=== PATIENT | male | born 1975 | race Caucasian/White ===

== ENCOUNTER → 2019-04-30 | Outpatient (CLI) | payer SELFPAY | PROVIDERS: Family Provider Nurse Practitioner; Visit Provider Psychiatry & Neurology Psychiatry | DX: Z79.899 Other long term (current) drug therapy (principal) ==

== ENCOUNTER → 2019-05-28 09:45 | Outpatient (BNVA) | payer OTHER, SELFPAY | PROVIDERS: Family Provider Nurse Practitioner; PCP Nurse Practitioner; Visit Provider Psychiatry & Neurology Psychiatry | DX: Z79.899 Other long term (current) drug therapy (principal) | CPT/HCPCS: 85007; 85027 ==

== ENCOUNTER → 2019-06-04 09:26 | Outpatient (BNVA) | payer MEDICARE, MEDICAID, SELFPAY | PROVIDERS: Family Provider Nurse Practitioner; PCP Nurse Practitioner; Visit Provider Psychiatry & Neurology Psychiatry | DX: F25.0 Schizoaffective disorder, bipolar type (principal); F17.200 Nicotine dependence, unspecified, uncomplicated | CPT/HCPCS: 99213 ==

== ENCOUNTER → 2019-06-25 09:14 | Outpatient (BNVA) | payer MEDICARE, MEDICAID, SELFPAY | PROVIDERS: Family Provider Nurse Practitioner; PCP Nurse Practitioner; Visit Provider Psychiatry & Neurology Psychiatry | DX: F25.0 Schizoaffective disorder, bipolar type (principal) | CPT/HCPCS: 85007; 85027 ==

== ENCOUNTER → 2019-07-04 11:46 | Outpatient (BNVA) | payer MEDICARE, MEDICAID, SELFPAY | PROVIDERS: Family Provider Nurse Practitioner; PCP Nurse Practitioner; Visit Provider Family Medicine | DX: J44.9 Chronic obstructive pulmonary disease, unspecified (principal); I10 Essential (primary) hypertension; K21.9 Gastro-esophageal reflux disease without esophagitis; E78.2 Mixed hyperlipidemia | CPT/HCPCS: 80053; 80061 ==

== ENCOUNTER → 2019-08-20 07:49 | Outpatient (BNVA) | payer MEDICARE, MEDICAID, SELFPAY | PROVIDERS: Family Provider Nurse Practitioner; PCP Nurse Practitioner; Visit Provider Psychiatry & Neurology Psychiatry | DX: F25.0 Schizoaffective disorder, bipolar type (principal); F17.200 Nicotine dependence, unspecified, uncomplicated | CPT/HCPCS: 99213 ==

== ENCOUNTER → 2019-10-11 07:29 | Outpatient (BNVA) | payer MEDICARE, MEDICAID, SELFPAY | PROVIDERS: Family Provider Nurse Practitioner; PCP Nurse Practitioner; Visit Provider Psychiatry & Neurology Psychiatry | DX: F25.0 Schizoaffective disorder, bipolar type (principal); Z79.899 Other long term (current) drug therapy; F17.200 Nicotine dependence, unspecified, uncomplicated | CPT/HCPCS: 85007; 85027; 99215 ==

== ENCOUNTER → 2019-11-11 07:33 | Outpatient (BNVA) | payer MEDICARE, MEDICAID, SELFPAY | PROVIDERS: Family Provider Nurse Practitioner; PCP Nurse Practitioner; Visit Provider Psychiatry & Neurology Psychiatry | DX: F25.0 Schizoaffective disorder, bipolar type (principal); F17.200 Nicotine dependence, unspecified, uncomplicated; Z79.899 Other long term (current) drug therapy | CPT/HCPCS: 85007; 85027; 99213 ==

== ENCOUNTER → 2019-11-26 09:41 | Outpatient (BNVA) | payer MEDICARE, SELFPAY | PROVIDERS: Family Provider Nurse Practitioner; PCP Nurse Practitioner; Visit Provider Psychiatry & Neurology Psychiatry | DX: Z79.899 Other long term (current) drug therapy (principal); F25.0 Schizoaffective disorder, bipolar type | CPT/HCPCS: 80048; 80061; 80178; 83036; 84443; 85007; 85027 ==

== ENCOUNTER 2019-12-04 11:50 | Outpatient (CLI) | payer MEDICARE, MEDICAID, SELFPAY ==
[2019-11-27 10:56] VITALS: BP 116/81; BMI 26.7
[2019-12-04 14:29] LABS: Lithium 0.7 mmol/L (0.6-1.2)
== END 2019-12-04 11:51 | disposition home or self-care (01) ==
LOC: LAB 11:54
PROVIDERS: Visit Provider Psychiatry & Neurology Psychiatry
DX: Z79.899 Other long term (current) drug therapy (principal)
CPT/HCPCS: 80178

== ENCOUNTER → 2019-12-10 09:40 | Outpatient (BNVA) | payer MEDICARE, MEDICAID, SELFPAY ==
[2019-11-27 10:56] VITALS: BP 116/81; BMI 26.7
== END ==
PROVIDERS: Visit Provider Psychiatry & Neurology Psychiatry
DX: E87.1 Hypo-osmolality and hyponatremia (principal); Z79.899 Other long term (current) drug therapy
CPT/HCPCS: 85007; 85027

== ENCOUNTER → 2019-12-11 07:41 | Outpatient (BNVA) | payer MEDICARE, SELFPAY ==
[2019-11-27 10:56] VITALS: BP 116/81; BMI 26.7
== END ==
PROVIDERS: Visit Provider Psychiatry & Neurology Psychiatry
DX: E87.1 Hypo-osmolality and hyponatremia (principal); F17.200 Nicotine dependence, unspecified, uncomplicated; F25.0 Schizoaffective disorder, bipolar type
CPT/HCPCS: 80053; 99214

== ENCOUNTER → 2019-12-17 09:26 | Outpatient (BNVA) | payer MEDICARE, SELFPAY ==
[2019-11-27 10:56] VITALS: BP 116/81; BMI 26.7
== END ==
PROVIDERS: Visit Provider Psychiatry & Neurology Psychiatry
DX: E87.1 Hypo-osmolality and hyponatremia (principal)
CPT/HCPCS: 83935

== ENCOUNTER → 2019-12-24 09:35 | Outpatient (BNVA) | payer OTHER, MEDICAID, SELFPAY ==
[2019-11-27 10:56] VITALS: BP 116/81; BMI 26.7
== END ==
PROVIDERS: Visit Provider Psychiatry & Neurology Psychiatry
DX: E87.1 Hypo-osmolality and hyponatremia (principal)
CPT/HCPCS: 85007; 85027

== ENCOUNTER → 2019-12-31 09:46 | Outpatient (BNVA) | payer MEDICARE, MEDICAID, SELFPAY ==
[2019-11-27 10:56] VITALS: BP 116/81; BMI 26.7
== END ==
PROVIDERS: Visit Provider Psychiatry & Neurology Psychiatry
DX: F25.0 Schizoaffective disorder, bipolar type (principal); Z79.899 Other long term (current) drug therapy
CPT/HCPCS: 85007; 85027

== ENCOUNTER → 2020-01-14 09:08 | Outpatient (BNVA) | payer MEDICARE, MEDICAID, SELFPAY ==
[2019-11-27 10:56] VITALS: BP 116/81; BMI 26.7
== END ==
PROVIDERS: Visit Provider Psychiatry & Neurology Psychiatry
DX: E87.1 Hypo-osmolality and hyponatremia (principal); F25.0 Schizoaffective disorder, bipolar type; F17.200 Nicotine dependence, unspecified, uncomplicated; F17.210 Nicotine dependence, cigarettes, uncomplicated
CPT/HCPCS: 85007; 85027; 99213

== ENCOUNTER → 2020-01-28 09:20 | Outpatient (BNVA) | payer MEDICARE, MEDICAID, SELFPAY ==
[2019-11-27 10:56] VITALS: BP 116/81; BMI 26.7
== END ==
PROVIDERS: Visit Provider Psychiatry & Neurology Psychiatry
DX: F25.0 Schizoaffective disorder, bipolar type (principal); Z79.899 Other long term (current) drug therapy
CPT/HCPCS: 85007; 85027

== ENCOUNTER → 2020-02-11 09:13 | Outpatient (BNVA) | payer MEDICARE, MEDICAID, SELFPAY ==
[2019-11-27 10:56] VITALS: BP 116/81; BMI 26.7
== END ==
PROVIDERS: Visit Provider Psychiatry & Neurology Psychiatry
DX: F25.0 Schizoaffective disorder, bipolar type (principal); F17.200 Nicotine dependence, unspecified, uncomplicated; E87.1 Hypo-osmolality and hyponatremia
CPT/HCPCS: 99213

== ENCOUNTER → 2020-02-25 09:16 | Outpatient (BNVA) | payer MEDICARE, MEDICAID, SELFPAY ==
[2020-02-15 11:27] VITALS: BP 116/81; BMI 26.7
== END ==
PROVIDERS: Visit Provider Psychiatry & Neurology Psychiatry
DX: F25.0 Schizoaffective disorder, bipolar type (principal); Z79.899 Other long term (current) drug therapy
CPT/HCPCS: 85007; 85027

== ENCOUNTER → 2020-03-24 09:14 | Outpatient (BNVA) | payer MEDICARE, SELFPAY ==
[2020-02-15 11:27] VITALS: BP 116/81; BMI 26.7
== END ==
PROVIDERS: Visit Provider Psychiatry & Neurology Psychiatry
DX: F25.0 Schizoaffective disorder, bipolar type (principal); Z79.899 Other long term (current) drug therapy
CPT/HCPCS: 85007; 85027

== ENCOUNTER → 2020-04-14 09:16 | Outpatient (BNVA) | payer MEDICARE, MEDICAID, SELFPAY ==
[2020-02-15 11:27] VITALS: BP 116/81; BMI 26.7
== END ==
PROVIDERS: Visit Provider Psychiatry & Neurology Psychiatry
DX: F25.0 Schizoaffective disorder, bipolar type (principal); Z79.899 Other long term (current) drug therapy
CPT/HCPCS: 85007; 85027

== ENCOUNTER → 2020-04-21 09:06 | Outpatient (BNVA) | payer MEDICARE, MEDICAID, SELFPAY ==
[2020-02-15 11:27] VITALS: BP 116/81; BMI 26.7
== END ==
PROVIDERS: Visit Provider Psychiatry & Neurology Psychiatry
DX: F25.0 Schizoaffective disorder, bipolar type (principal); F17.200 Nicotine dependence, unspecified, uncomplicated; E87.1 Hypo-osmolality and hyponatremia; Z79.899 Other long term (current) drug therapy
CPT/HCPCS: 99214

== ENCOUNTER → 2020-05-12 08:21 | Outpatient (BNVA) | payer MEDICARE, MEDICAID, SELFPAY ==
[2020-02-15 11:27] VITALS: BP 116/81; BMI 26.7
== END ==
PROVIDERS: Visit Provider Psychiatry & Neurology Psychiatry
DX: Z79.899 Other long term (current) drug therapy (principal)
CPT/HCPCS: 85025

== ENCOUNTER → 2020-05-19 08:26 | Outpatient (BNVA) | payer MEDICARE, MEDICAID, SELFPAY ==
[2020-02-15 11:27] VITALS: BP 116/81; BMI 26.7
== END ==
PROVIDERS: Visit Provider Psychiatry & Neurology Psychiatry
DX: Z79.899 Other long term (current) drug therapy (principal)
CPT/HCPCS: 80048; 80178; 84443

== ENCOUNTER → 2020-06-25 12:39 | Outpatient (BNVA) | payer MEDICARE, MEDICAID, SELFPAY ==
[2020-02-15 11:27] VITALS: BP 116/81; BMI 26.7
== END ==
PROVIDERS: Visit Provider Psychiatry & Neurology Psychiatry
DX: F25.0 Schizoaffective disorder, bipolar type (principal); F17.200 Nicotine dependence, unspecified, uncomplicated
CPT/HCPCS: 99214

== ENCOUNTER → 2020-08-18 09:21 | Outpatient (BNVA) | payer MEDICARE, MEDICAID, SELFPAY ==
[2020-02-15 11:27] VITALS: BP 116/81; BMI 26.7
== END ==
PROVIDERS: Visit Provider Psychiatry & Neurology Psychiatry
DX: F25.0 Schizoaffective disorder, bipolar type (principal); Z79.899 Other long term (current) drug therapy; F17.200 Nicotine dependence, unspecified, uncomplicated
CPT/HCPCS: 85025; 99214

== ENCOUNTER → 2020-08-24 09:17 | Outpatient (BNVA) | payer MEDICARE, MEDICAID, SELFPAY ==
[2020-02-15 11:27] VITALS: BP 116/81; BMI 26.7
== END ==
PROVIDERS: Visit Provider Family Medicine
DX: E78.2 Mixed hyperlipidemia (principal); I10 Essential (primary) hypertension; E78.5 Hyperlipidemia, unspecified; J44.9 Chronic obstructive pulmonary disease, unspecified; Z87.19 Personal history of other diseases of the digestive system
CPT/HCPCS: 80053; 80061; 84443; 85025

== ENCOUNTER → 2020-10-20 09:14 | Outpatient (BNVA) | payer MEDICARE, MEDICAID, SELFPAY ==
[2020-02-15 11:27] VITALS: BP 116/81; BMI 26.7
== END ==
PROVIDERS: Visit Provider Psychiatry & Neurology Psychiatry
DX: F25.0 Schizoaffective disorder, bipolar type (principal); Z79.899 Other long term (current) drug therapy; F17.210 Nicotine dependence, cigarettes, uncomplicated; E87.1 Hypo-osmolality and hyponatremia
CPT/HCPCS: 99214; 80048; 85025

== ENCOUNTER → 2020-11-17 09:54 | Outpatient (BNVA) | payer OTHER, SELFPAY ==
[2020-02-15 11:27] VITALS: BP 116/81; BMI 26.7
== END ==
PROVIDERS: Visit Provider Psychiatry & Neurology Psychiatry
DX: F25.0 Schizoaffective disorder, bipolar type (principal); Z79.899 Other long term (current) drug therapy
CPT/HCPCS: 80061; 83036; 85007; 85027

== ENCOUNTER → 2020-12-17 09:20 | Outpatient (BNVA) | payer MEDICARE, MEDICAID, OTHER, SELFPAY ==
[2020-12-07 11:26] VITALS: BP 119/78; BMI 31.3
== END ==
PROVIDERS: Visit Provider Psychiatry & Neurology Psychiatry
DX: F25.0 Schizoaffective disorder, bipolar type (principal); Z79.899 Other long term (current) drug therapy
CPT/HCPCS: 80178; 84295; 85007; 85027

== ENCOUNTER → 2021-03-02 09:27 | Outpatient (BNVA) | payer MEDICARE, MEDICAID, SELFPAY ==
[2020-12-07 11:26] VITALS: BP 119/78; BMI 31.3
== END ==
PROVIDERS: Visit Provider Psychiatry & Neurology Psychiatry
DX: F25.0 Schizoaffective disorder, bipolar type (principal); F17.200 Nicotine dependence, unspecified, uncomplicated; Z79.899 Other long term (current) drug therapy
CPT/HCPCS: 85007; 85027; 99214

== ENCOUNTER → 2021-03-31 17:41 | Outpatient (BNVA) | payer MEDICAID, SELFPAY ==
[2020-12-07 11:26] VITALS: BP 119/78; BMI 31.3
== END ==
PROVIDERS: Visit Provider Nurse Practitioner Family
DX: E78.2 Mixed hyperlipidemia (principal); I10 Essential (primary) hypertension; R41.0 Disorientation, unspecified
CPT/HCPCS: 80053; 80061; 81000; 82306; 82607; 83735; 84443; 85025

== ENCOUNTER → 2021-04-20 08:36 | Outpatient (BNVA) | payer MEDICARE, MEDICAID, SELFPAY ==
[2020-12-07 11:26] VITALS: BP 119/78; BMI 31.3
== END ==
PROVIDERS: Visit Provider Nurse Practitioner Family
DX: E87.1 Hypo-osmolality and hyponatremia (principal)
CPT/HCPCS: 80048

== ENCOUNTER → 2021-05-04 09:27 | Outpatient (BNVA) | payer MEDICARE, MEDICAID, SELFPAY ==
[2020-12-07 11:26] VITALS: BP 119/78; BMI 31.3
== END ==
PROVIDERS: Visit Provider Psychiatry & Neurology Psychiatry
DX: F25.0 Schizoaffective disorder, bipolar type (principal); F17.200 Nicotine dependence, unspecified, uncomplicated
CPT/HCPCS: 99215

== ENCOUNTER → 2021-05-11 09:47 | Outpatient (BNVA) | payer MEDICARE, MEDICAID, SELFPAY ==
[2020-12-07 11:26] VITALS: BP 119/78; BMI 31.3
== END ==
PROVIDERS: Visit Provider Psychiatry & Neurology Psychiatry
DX: Z79.899 Other long term (current) drug therapy (principal)
CPT/HCPCS: 80178

== ENCOUNTER → 2021-05-13 08:45 | Outpatient (BNVA) | payer OTHER, SELFPAY ==
[2020-12-07 11:26] VITALS: BP 119/78; BMI 31.3
== END ==
PROVIDERS: Visit Provider Psychiatry & Neurology Psychiatry
DX: F25.0 Schizoaffective disorder, bipolar type (principal); Z79.899 Other long term (current) drug therapy
CPT/HCPCS: 80178; 85007; 85027

== ENCOUNTER → 2021-05-25 12:58 | Outpatient (BNVA) | payer OTHER, SELFPAY ==
[2020-12-07 11:26] VITALS: BP 119/78; BMI 31.3
== END ==
PROVIDERS: PCP Family Medicine; Visit Provider Psychiatry & Neurology Psychiatry
DX: Z79.899 Other long term (current) drug therapy (principal)
CPT/HCPCS: 80178

== ENCOUNTER → 2021-05-27 09:34 | Outpatient (BNVA) | payer MEDICARE, MEDICAID, SELFPAY ==
[2020-12-07 11:26] VITALS: BP 119/78; BMI 31.3
== END ==
PROVIDERS: PCP Family Medicine; Visit Provider Psychiatry & Neurology Psychiatry
DX: F25.0 Schizoaffective disorder, bipolar type (principal); E87.1 Hypo-osmolality and hyponatremia; F17.200 Nicotine dependence, unspecified, uncomplicated
CPT/HCPCS: 99214

== ENCOUNTER → 2021-06-29 09:30 | Outpatient (BNVA) | payer MEDICARE, MEDICAID, SELFPAY ==
[2020-12-07 11:26] VITALS: BP 119/78; BMI 31.3
== END ==
PROVIDERS: PCP Family Medicine; Visit Provider Psychiatry & Neurology Psychiatry
DX: F25.0 Schizoaffective disorder, bipolar type (principal); E87.1 Hypo-osmolality and hyponatremia; F17.200 Nicotine dependence, unspecified, uncomplicated; Z79.899 Other long term (current) drug therapy
CPT/HCPCS: 80048; 80178; 84443; 85007; 85027; 99214

== ENCOUNTER → 2021-07-22 09:53 | Outpatient (BNVA) | payer MEDICARE, MEDICAID, OTHER, SELFPAY ==
[2020-12-07 11:26] VITALS: BP 119/78; BMI 31.3
== END ==
PROVIDERS: PCP Family Medicine; Visit Provider Psychiatry & Neurology Psychiatry
DX: F25.0 Schizoaffective disorder, bipolar type (principal); Z79.899 Other long term (current) drug therapy
CPT/HCPCS: 80061; 80178

== ENCOUNTER → 2021-07-27 09:32 | Outpatient (BNVA) | payer MEDICARE, MEDICAID, SELFPAY ==
[2021-07-26 14:58] VITALS: BP 135/89; BMI 28.2
== END ==
PROVIDERS: PCP Family Medicine; Visit Provider Psychiatry & Neurology Psychiatry
DX: F25.0 Schizoaffective disorder, bipolar type (principal); F17.200 Nicotine dependence, unspecified, uncomplicated; Z79.899 Other long term (current) drug therapy
CPT/HCPCS: 85007; 85027; 99214

== ENCOUNTER → 2021-08-24 09:29 | Outpatient (BNVA) | payer MEDICARE, MEDICAID, SELFPAY ==
[2021-07-26 14:58] VITALS: BP 135/89; BMI 28.2
== END ==
PROVIDERS: PCP Family Medicine; Visit Provider Psychiatry & Neurology Psychiatry
DX: F25.0 Schizoaffective disorder, bipolar type (principal); F17.200 Nicotine dependence, unspecified, uncomplicated; Z79.899 Other long term (current) drug therapy; E87.1 Hypo-osmolality and hyponatremia
CPT/HCPCS: 85007; 85027; 99213

== ENCOUNTER → 2021-10-05 09:38 | Outpatient (BNVA) | payer MEDICARE, SELFPAY ==
[2021-10-04 08:06] VITALS: BP 135/89; BMI 28.2
== END ==
PROVIDERS: PCP Family Medicine; Visit Provider Psychiatry & Neurology Psychiatry
DX: F25.0 Schizoaffective disorder, bipolar type (principal); Z79.899 Other long term (current) drug therapy
CPT/HCPCS: 85007; 85027

== ENCOUNTER → 2021-10-26 09:36 | Outpatient (BNVA) | payer MEDICARE, SELFPAY ==
[2021-10-13 07:23] VITALS: BP 135/89; BMI 28.2
== END ==
PROVIDERS: PCP Family Medicine; Visit Provider Psychiatry & Neurology Psychiatry
DX: Z79.899 Other long term (current) drug therapy (principal)
CPT/HCPCS: 85025

== ENCOUNTER → 2021-10-28 10:12 | Outpatient (BNVA) | payer MEDICARE, MEDICAID, SELFPAY ==
[2021-10-13 07:23] VITALS: BP 135/89; BMI 28.2
== END ==
PROVIDERS: PCP Family Medicine; Visit Provider Psychiatry & Neurology Psychiatry
DX: Z72.89 Other problems related to lifestyle (principal); E87.1 Hypo-osmolality and hyponatremia; F17.200 Nicotine dependence, unspecified, uncomplicated; F25.0 Schizoaffective disorder, bipolar type; Z79.899 Other long term (current) drug therapy
CPT/HCPCS: 99213

== ENCOUNTER → 2021-12-23 10:39 | Outpatient (BNVA) | payer MEDICARE, MEDICAID, SELFPAY ==
[2021-11-05 16:28] VITALS: BP 135/89; BMI 28.2
== END ==
PROVIDERS: PCP Family Medicine; Visit Provider Psychiatry & Neurology Psychiatry
DX: Z79.899 Other long term (current) drug therapy (principal); E87.1 Hypo-osmolality and hyponatremia; F25.0 Schizoaffective disorder, bipolar type; F17.200 Nicotine dependence, unspecified, uncomplicated; Z72.89 Other problems related to lifestyle
CPT/HCPCS: 84295; 85007; 85027

== ENCOUNTER → 2022-02-17 10:19 | Outpatient (BNVA) | payer MEDICARE, MEDICAID, SELFPAY ==
[2022-02-07 12:23] VITALS: BP 135/89; BMI 28.2
== END ==
PROVIDERS: PCP Family Medicine; Visit Provider Psychiatry & Neurology Psychiatry
DX: Z79.899 Other long term (current) drug therapy (principal); E87.1 Hypo-osmolality and hyponatremia; F25.0 Schizoaffective disorder, bipolar type; F17.200 Nicotine dependence, unspecified, uncomplicated; Z72.89 Other problems related to lifestyle
CPT/HCPCS: 85007; 85027

== ENCOUNTER → 2022-04-05 10:27 | Outpatient (BNVA) | payer MEDICARE, OTHER, SELFPAY ==
[2022-03-07 07:18] VITALS: BP 135/89; BMI 28.2
== END ==
PROVIDERS: PCP Family Medicine; Visit Provider Psychiatry & Neurology Psychiatry
DX: F25.0 Schizoaffective disorder, bipolar type (principal); Z79.899 Other long term (current) drug therapy
CPT/HCPCS: 85007; 85027

== ENCOUNTER → 2022-05-11 08:16 | Outpatient (BNVA) | payer MEDICARE, MEDICAID, SELFPAY ==
[2022-05-06 10:08] VITALS: BP 135/89; BMI 28.2
== END ==
PROVIDERS: PCP Nurse Practitioner Family; Visit Provider Nurse Practitioner Family
DX: Z12.5 Encounter for screening for malignant neoplasm of prostate (principal); E78.2 Mixed hyperlipidemia; E87.1 Hypo-osmolality and hyponatremia; R73.9 Hyperglycemia, unspecified; E55.9 Vitamin D deficiency, unspecified
CPT/HCPCS: 80053; 80061; 82306; 83036; 84443; 85025; G0103

== ENCOUNTER → 2022-06-09 13:42 | Outpatient (BNVA) | payer MEDICARE, MEDICAID, OTHER, SELFPAY ==
[2022-05-06 10:08] VITALS: BP 135/89; BMI 28.2
== END ==
PROVIDERS: PCP Nurse Practitioner Family; Visit Provider Psychiatry & Neurology Psychiatry
DX: F25.0 Schizoaffective disorder, bipolar type (principal); Z79.899 Other long term (current) drug therapy
CPT/HCPCS: 85007; 85027

== ENCOUNTER → 2022-07-28 11:17 | Outpatient (BNVA) | payer MEDICARE, MEDICAID, SELFPAY ==
[2022-07-18 09:39] VITALS: BP 135/89; BMI 28.2
== END ==
PROVIDERS: PCP Nurse Practitioner Family; Visit Provider Psychiatry & Neurology Psychiatry
DX: F25.0 Schizoaffective disorder, bipolar type (principal); Z79.899 Other long term (current) drug therapy; I25.118 Atherosclerotic heart disease of native coronary artery with other forms of angina pectoris; I50.21 Acute systolic (congestive) heart failure; F17.210 Nicotine dependence, cigarettes, uncomplicated
CPT/HCPCS: 85007; 85027

== ENCOUNTER → 2022-10-11 10:10 | Outpatient (BNVA) | payer MEDICARE, MEDICAID, SELFPAY ==
[2022-09-09 07:38] VITALS: BP 108/73; BMI 29.3
== END ==
PROVIDERS: PCP Nurse Practitioner Family; Visit Provider Psychiatry & Neurology Psychiatry
DX: F25.0 Schizoaffective disorder, bipolar type (principal); Z79.899 Other long term (current) drug therapy
CPT/HCPCS: 85007; 85027

== ENCOUNTER → 2022-12-13 15:41 | Outpatient (BNVA) | payer OTHER, SELFPAY ==
[2022-10-28 08:48] VITALS: BP 108/73; BMI 29.3
== END ==
PROVIDERS: PCP Nurse Practitioner Family; Visit Provider Psychiatry & Neurology Psychiatry
DX: F25.0 Schizoaffective disorder, bipolar type (principal); Z79.899 Other long term (current) drug therapy
CPT/HCPCS: 85007; 85027

== ENCOUNTER → 2022-12-20 11:07 | Outpatient (BNVA) | payer MEDICARE, OTHER, SELFPAY ==
[2022-10-28 08:48] VITALS: BP 108/73; BMI 29.3
== END ==
PROVIDERS: PCP Nurse Practitioner Family; Visit Provider Psychiatry & Neurology Psychiatry
DX: E87.1 Hypo-osmolality and hyponatremia (principal)
CPT/HCPCS: 84295

== ENCOUNTER → 2023-01-16 17:07 | Outpatient (BNVA) | payer MEDICARE, SELFPAY ==
[2022-12-28 09:25] VITALS: BP 108/73; BMI 29.3
== END ==
PROVIDERS: PCP Nurse Practitioner Family; Visit Provider Nurse Practitioner Family
DX: I10 Essential (primary) hypertension (principal); R73.9 Hyperglycemia, unspecified; E55.9 Vitamin D deficiency, unspecified; E78.5 Hyperlipidemia, unspecified; Z87.19 Personal history of other diseases of the digestive system; K21.9 Gastro-esophageal reflux disease without esophagitis; E78.2 Mixed hyperlipidemia
CPT/HCPCS: 80053; 80061; 82306; 83036; 83735; 84443; 85025

== ENCOUNTER → 2023-02-21 10:16 | Outpatient (BNVA) | payer MEDICARE, OTHER, SELFPAY ==
[2023-02-20 07:40] VITALS: BP 108/73; BMI 29.3
== END ==
PROVIDERS: PCP Nurse Practitioner Family; Visit Provider Psychiatry & Neurology Psychiatry
DX: F25.0 Schizoaffective disorder, bipolar type (principal); Z79.899 Other long term (current) drug therapy; Z72.89 Other problems related to lifestyle
CPT/HCPCS: 85007; 85027

== ENCOUNTER → 2023-04-04 10:11 | Outpatient (BNVA) | payer MEDICARE, OTHER, SELFPAY ==
[2023-03-22 07:49] VITALS: BP 108/73; BMI 29.3
== END ==
PROVIDERS: PCP Nurse Practitioner Family; Visit Provider Psychiatry & Neurology Psychiatry
DX: Z79.899 Other long term (current) drug therapy (principal)
CPT/HCPCS: 85007; 85027

== ENCOUNTER → 2023-05-02 10:57 | Outpatient (BNVA) | payer OTHER, SELFPAY ==
[2023-03-22 07:49] VITALS: BP 108/73; BMI 29.3
== END ==
PROVIDERS: PCP Nurse Practitioner Family; Visit Provider Psychiatry & Neurology Psychiatry
DX: F25.0 Schizoaffective disorder, bipolar type (principal); Z79.899 Other long term (current) drug therapy
CPT/HCPCS: 85007; 85027

== ENCOUNTER → 2023-05-30 09:55 | Outpatient (BNVA) | payer OTHER, SELFPAY ==
[2023-05-30 09:34] VITALS: BP 108/73; BMI 29.3
== END ==
PROVIDERS: PCP Nurse Practitioner Family; Visit Provider Psychiatry & Neurology Psychiatry
DX: F25.0 Schizoaffective disorder, bipolar type (principal); Z79.899 Other long term (current) drug therapy
CPT/HCPCS: 85007; 85027

== ENCOUNTER → 2023-06-15 14:06 | Outpatient (BNVA) | payer MEDICARE, MEDICAID, SELFPAY ==
[2023-05-30 09:34] VITALS: BP 108/73; BMI 29.3
== END ==
PROVIDERS: PCP Nurse Practitioner Family; Visit Provider Psychiatry & Neurology Psychiatry
DX: F25.0 Schizoaffective disorder, bipolar type (principal); Z79.899 Other long term (current) drug therapy
CPT/HCPCS: 80061; 83036

== ENCOUNTER → 2023-06-29 09:41 | Outpatient (BNVA) | payer OTHER, SELFPAY ==
[2023-06-19 15:27] VITALS: BP 99/61; BMI 29.7
== END ==
PROVIDERS: PCP Nurse Practitioner Family; Visit Provider Psychiatry & Neurology Psychiatry
DX: F25.0 Schizoaffective disorder, bipolar type (principal)
CPT/HCPCS: 85007; 85027

== ENCOUNTER → 2023-07-27 09:25 | Outpatient (BNVA) | payer OTHER, SELFPAY ==
[2023-07-05 13:34] VITALS: BP 99/61; BMI 29.7
== END ==
PROVIDERS: PCP Nurse Practitioner Family; Visit Provider Psychiatry & Neurology Psychiatry
DX: F25.0 Schizoaffective disorder, bipolar type (principal); Z79.899 Other long term (current) drug therapy
CPT/HCPCS: 85007; 85027

== ENCOUNTER → 2023-08-24 09:34 | Outpatient (BNVA) | payer OTHER, SELFPAY ==
[2023-08-21 07:39] VITALS: BP 99/61; BMI 29.7
== END ==
PROVIDERS: PCP Nurse Practitioner Family; Visit Provider Psychiatry & Neurology Psychiatry
DX: F25.0 Schizoaffective disorder, bipolar type (principal)
CPT/HCPCS: 85007; 85027

== ENCOUNTER → 2023-09-21 09:44 | Outpatient (BNVA) | payer OTHER, SELFPAY ==
[2023-08-21 07:39] VITALS: BP 99/61; BMI 29.7
== END ==
PROVIDERS: PCP Nurse Practitioner Family; Visit Provider Psychiatry & Neurology Psychiatry
DX: F25.0 Schizoaffective disorder, bipolar type (principal); Z79.899 Other long term (current) drug therapy
CPT/HCPCS: 85007; 85027

== ENCOUNTER → 2023-10-19 10:42 | Outpatient (BNVA) | payer MEDICARE, OTHER, SELFPAY ==
[2023-10-09 07:56] VITALS: BP 99/61; BMI 29.7
== END ==
PROVIDERS: PCP Nurse Practitioner Family; Visit Provider Psychiatry & Neurology Psychiatry
DX: F25.0 Schizoaffective disorder, bipolar type (principal); Z79.899 Other long term (current) drug therapy
CPT/HCPCS: 85007; 85027

== ENCOUNTER → 2023-11-21 09:29 | Outpatient (BNVA) | payer OTHER, SELFPAY ==
[2023-10-09 07:56] VITALS: BP 99/61; BMI 29.7
== END ==
PROVIDERS: PCP Nurse Practitioner Family; Visit Provider Psychiatry & Neurology Psychiatry
DX: F25.0 Schizoaffective disorder, bipolar type (principal); Z79.899 Other long term (current) drug therapy
CPT/HCPCS: 85007; 85027

== ENCOUNTER → 2024-01-02 09:42 | Outpatient (BNVA) | payer OTHER, SELFPAY ==
[2023-11-24 09:58] VITALS: BP 99/61; BMI 29.7
== END ==
PROVIDERS: PCP Nurse Practitioner Family; Visit Provider Psychiatry & Neurology Psychiatry
DX: F25.0 Schizoaffective disorder, bipolar type (principal); Z79.899 Other long term (current) drug therapy
CPT/HCPCS: 80061; 83036; 85007; 85027

== ENCOUNTER → 2024-01-29 10:58 | Outpatient (BNVA) | payer MEDICARE, MEDICAID, SELFPAY ==
[2023-11-24 09:58] VITALS: BP 99/61; BMI 29.7
== END ==
PROVIDERS: PCP Nurse Practitioner Family; Visit Provider Nurse Practitioner Family
DX: Z12.5 Encounter for screening for malignant neoplasm of prostate (principal); E55.9 Vitamin D deficiency, unspecified; E78.2 Mixed hyperlipidemia
CPT/HCPCS: 80053; 82306; 84443; G0103

== ENCOUNTER → 2024-01-30 10:21 | Outpatient (BNVA) | payer MEDICARE, MEDICAID, SELFPAY ==
[2023-11-24 09:58] VITALS: BP 99/61; BMI 29.7
== END ==
PROVIDERS: PCP Nurse Practitioner Family; Visit Provider Psychiatry & Neurology Psychiatry
DX: F25.0 Schizoaffective disorder, bipolar type (principal); Z79.899 Other long term (current) drug therapy
CPT/HCPCS: 85007; 85027

== ENCOUNTER → 2024-02-27 09:58 | Outpatient (BNVA) | payer OTHER, SELFPAY ==
[2023-11-24 09:58] VITALS: BP 99/61; BMI 29.7
== END ==
PROVIDERS: PCP Nurse Practitioner Family; Visit Provider Psychiatry & Neurology Psychiatry
DX: F25.0 Schizoaffective disorder, bipolar type (principal); Z79.899 Other long term (current) drug therapy
CPT/HCPCS: 85007; 85027

== ENCOUNTER → 2024-04-02 09:51 | Outpatient (BNVA) | payer OTHER, SELFPAY ==
[2024-03-18 07:55] VITALS: BP 99/61; BMI 29.7
== END ==
PROVIDERS: PCP Nurse Practitioner Family; Visit Provider Psychiatry & Neurology Psychiatry
DX: F25.0 Schizoaffective disorder, bipolar type (principal); Z79.899 Other long term (current) drug therapy
CPT/HCPCS: 85007; 85027

== ENCOUNTER → 2024-05-02 09:40 | Outpatient (BNVA) | payer OTHER, SELFPAY ==
[2024-03-18 07:55] VITALS: BP 99/61; BMI 29.7
== END ==
PROVIDERS: PCP Nurse Practitioner Family; Visit Provider Psychiatry & Neurology Neurology
DX: Z79.899 Other long term (current) drug therapy (principal)
CPT/HCPCS: 85007; 85027

== ENCOUNTER → 2024-05-28 09:33 | Outpatient (BNVA) | payer OTHER, SELFPAY ==
[2024-03-18 07:55] VITALS: BP 99/61; BMI 29.7
== END ==
PROVIDERS: PCP Nurse Practitioner Family; Visit Provider Psychiatry & Neurology Psychiatry
DX: Z79.899 Other long term (current) drug therapy (principal)
CPT/HCPCS: 85007; 85027

== ENCOUNTER → 2024-06-27 09:46 | Outpatient (BNVA) | payer OTHER, SELFPAY ==
[2024-03-18 07:55] VITALS: BP 99/61; BMI 29.7
== END ==
PROVIDERS: PCP Nurse Practitioner Family; Visit Provider Psychiatry & Neurology Psychiatry
DX: F25.0 Schizoaffective disorder, bipolar type (principal); Z79.899 Other long term (current) drug therapy
CPT/HCPCS: 80061; 83036; 85007; 85027

== ENCOUNTER → 2024-07-23 09:36 | Outpatient (BNVA) | payer MEDICARE, MEDICAID, SELFPAY ==
[2024-07-01 14:51] VITALS: BP 123/83; BMI 29.2
== END ==
PROVIDERS: PCP Nurse Practitioner Family; Visit Provider Psychiatry & Neurology Psychiatry
DX: F25.0 Schizoaffective disorder, bipolar type (principal); Z79.899 Other long term (current) drug therapy
CPT/HCPCS: 85007; 85027

== ENCOUNTER → 2024-08-29 09:44 | Outpatient (BNVA) | payer OTHER, SELFPAY ==
[2024-07-01 14:51] VITALS: BP 123/83; BMI 29.2
== END ==
PROVIDERS: PCP Nurse Practitioner Family; Visit Provider Psychiatry & Neurology Psychiatry
DX: F25.0 Schizoaffective disorder, bipolar type (principal); Z79.899 Other long term (current) drug therapy
CPT/HCPCS: 85007; 85027

== ENCOUNTER → 2024-09-26 10:06 | Outpatient (BNVA) | payer OTHER, SELFPAY ==
[2024-07-01 14:51] VITALS: BP 123/83; BMI 29.2
== END ==
PROVIDERS: PCP Nurse Practitioner Family; Visit Provider Psychiatry & Neurology Psychiatry
DX: Z79.899 Other long term (current) drug therapy (principal); F25.0 Schizoaffective disorder, bipolar type
CPT/HCPCS: 85007; 85027

== ENCOUNTER → 2024-10-21 09:53 | Outpatient (BNVA) | payer MEDICARE, MEDICAID, SELFPAY ==
[2024-07-01 14:51] VITALS: BP 123/83; BMI 29.2
== END ==
PROVIDERS: PCP Nurse Practitioner Family; Visit Provider Nurse Practitioner Family
DX: E78.2 Mixed hyperlipidemia (principal); R73.9 Hyperglycemia, unspecified; R73.03 Prediabetes; I10 Essential (primary) hypertension; E87.1 Hypo-osmolality and hyponatremia
CPT/HCPCS: 80053; 80061; 83036; 84443

== ENCOUNTER → 2025-01-01 09:48 | Outpatient (BNVA) | payer MEDICARE, OTHER, SELFPAY ==
[2024-07-01 14:51] VITALS: BP 123/83; BMI 29.2
== END ==
PROVIDERS: PCP Nurse Practitioner Family; Visit Provider Psychiatry & Neurology Psychiatry
DX: F25.0 Schizoaffective disorder, bipolar type (principal); Z79.899 Other long term (current) drug therapy
CPT/HCPCS: 85007; 85027

== ENCOUNTER → 2025-01-13 10:33 | Outpatient (BNVA) | payer MEDICARE, MEDICAID, SELFPAY ==
[2024-07-01 14:51] VITALS: BP 123/83; BMI 29.2
== END ==
PROVIDERS: PCP Nurse Practitioner Family; Visit Provider Nurse Practitioner Family
DX: I10 Essential (primary) hypertension (principal); R73.03 Prediabetes; E55.9 Vitamin D deficiency, unspecified; E87.1 Hypo-osmolality and hyponatremia
CPT/HCPCS: 80053; 80061; 82306; 83036; 84443

== ENCOUNTER → 2025-01-28 09:50 | Outpatient (BNVA) | payer OTHER, SELFPAY ==
[2025-01-27 15:27] VITALS: BP 110/60; BMI 29.6
== END ==
PROVIDERS: PCP Nurse Practitioner Family; Visit Provider Psychiatry & Neurology Psychiatry
DX: Z79.899 Other long term (current) drug therapy (principal); F25.0 Schizoaffective disorder, bipolar type
CPT/HCPCS: 85007; 85027

== ENCOUNTER → 2025-02-10 12:28 | Outpatient (BNVA) | payer MEDICARE, MEDICAID, SELFPAY ==
[2025-01-27 15:27] VITALS: BP 110/60; BMI 29.6
== END ==
PROVIDERS: PCP Nurse Practitioner Family; Visit Provider Podiatrist Foot & Ankle Surgery
DX: Q82.8 Other specified congenital malformations of skin (principal); R73.03 Prediabetes
CPT/HCPCS: 17110; 99203

== ENCOUNTER → 2025-03-06 09:10 | Outpatient (BNVA) | payer MEDICARE, MEDICAID, SELFPAY ==
[2025-01-27 15:27] VITALS: BP 110/60; BMI 29.6
== END ==
PROVIDERS: PCP Nurse Practitioner Family; Visit Provider Psychiatry & Neurology Psychiatry
DX: F25.0 Schizoaffective disorder, bipolar type (principal); Z79.899 Other long term (current) drug therapy
CPT/HCPCS: 85007; 85027

== ENCOUNTER → 2025-03-10 07:56 | Outpatient (BNVA) | payer MEDICARE, MEDICAID, SELFPAY ==
[2025-01-27 15:27] VITALS: BP 110/60; BMI 29.6
== END ==
PROVIDERS: PCP Nurse Practitioner Family; Visit Provider Podiatrist Foot & Ankle Surgery
DX: Q82.8 Other specified congenital malformations of skin (principal); L84 Corns and callosities; R73.03 Prediabetes
CPT/HCPCS: 17110

== ENCOUNTER → 2025-04-01 10:05 | Outpatient (BNVA) | payer OTHER, SELFPAY ==
[2025-01-27 15:27] VITALS: BP 110/60; BMI 29.6
== END ==
PROVIDERS: PCP Nurse Practitioner Family; Visit Provider Psychiatry & Neurology Psychiatry
DX: F25.0 Schizoaffective disorder, bipolar type (principal); Z79.899 Other long term (current) drug therapy
CPT/HCPCS: 85007; 85027

== ENCOUNTER → 2025-04-29 12:00 | Outpatient (BNVA) | payer OTHER, SELFPAY ==
[2025-01-27 15:27] VITALS: BP 110/60; BMI 29.6
== END ==
PROVIDERS: PCP Nurse Practitioner Family; Visit Provider Psychiatry & Neurology Psychiatry
DX: Z79.899 Other long term (current) drug therapy (principal)
CPT/HCPCS: 85007; 85027